=== PATIENT | male | born 1955 | race Caucasian/White ===

== ENCOUNTER 2021-11-06 09:46 | Outpatient (CLI) | payer BC, SELFPAY ==
--- NOTE | 2021-11-06 09:30 | DI.RAD_ITS ---
Exam(s) XR HIP LT COMPLETE AP PELVIS EXAM: XR HIP LT COMPLETE AP PELVIS INDICATION: eval L hip DJD. COMPARISON: CR RT HIP COMPLETE AP PELVIS from 04/26/2017 TECHNIQUE: 2D digital imaging was performed. Two views. FINDINGS: Has been no change in the right hip prosthesis or appearance of the surrounding bone. There is been interval worsening of degenerative changes of the left hip, now severe. There is severe superior hi p joint space narrowing, periarticular spurring and sclerosis as well as large subchondral cysts at both sides of the joint. There is slight flattening of the superior left femoral head. IMPRESSION: Severe degenerative changes of the left hip. DATA REPOSITORY: RADIATION DOSE DELIVERED:
== END 2021-11-06 09:47 | disposition home or self-care (01) ==
LOC: DIORS 09:46
PROVIDERS: PCP Physician Assistant Medical; Referring Provider Physician Assistant Medical; Visit Provider Student in an Organized Health Care Education/Training Program
DX: M25.552 Pain in left hip (principal); M16.12 Unilateral primary osteoarthritis, left hip; Z96.641 Presence of right artificial hip joint
CPT/HCPCS: 73502

== ENCOUNTER 2021-12-05 02:54 | Outpatient (CLI) | payer BC, SELFPAY ==
[2021-12-05 08:49] LABS: HCT 39.7 % (40.0-50.0); HGB 13.7 g/dL (13.5-17.5); MCH 32.2 pg (27.0-33.0); MCHC 34.5 % (32.0-36.0); MCV 93 fL (80-95); MPV 8.8 fL (8.0-11.0); Platelet Count 288 10^3/uL (130-400); RBC 4.25 10^6/uL (4.36-5.78); RDW 11.8 % (11.8-14.1); RDW-SD 40.7 fL; WBC 7.57 10^3/uL (4.4-10.8)
[2021-12-05 09:58] LABS: Anion Gap 10.3 mmol/L (3-11); BUN 10 mg/dL (7-18); CO2 24.7 mmol/L (21.0-32.0); CREATININE 0.8 mg/dL (0.70-1.30); Chloride 99 mmol/L (98-107); Glucose 134 mg/dL (74-106); Potassium 4.6 mmol/L (3.5-5.1); Sodium 134 mmol/L (136-145)
[2021-12-05 12:15] LABS: Source Nasal/Nares
[2021-12-05 14:37] LABS: COVID-19 PCR Negative (Negative)
== END 2021-12-05 02:55 | disposition home or self-care (01) ==
LOC: LBO 02:54
PROVIDERS: PCP Physician Assistant Medical; Visit Provider Student in an Organized Health Care Education/Training Program
DX: M25.552 Pain in left hip (principal); M16.12 Unilateral primary osteoarthritis, left hip; Z20.822 Contact with and (suspected) exposure to COVID-19; Z01.818 Encounter for other preprocedural examination; Z01.812 Encounter for preprocedural laboratory examination
CPT/HCPCS: 36415; 80048; 85027; 87635

== ENCOUNTER 2021-12-06 05:59 | Day surgery (SDC) | payer BC, SELFPAY ==
[2021-12-06] VITALS (9 sets, daily range): BP systolic 104–147; BP diastolic 64–96; PULSE 71–89; RESP 15–20; TEMP 36–37.1; O2SAT 95–99; BMI 26.8
[2021-12-06] MEDS: Celecoxib 200 MG CAP 400 MG PO (06:40)
[2021-12-06] MEDS: Acetaminophen 500 MG TAB 1000 MG PO (06:40)
[2021-12-06] MEDS: Lactated Ringers 1,000 ML 80 ML IV (07:00)
--- NOTE | 2021-12-06 07:18 | W.ANESPRE ---
General Info Date of Service Date Performed: 12/06/21 Height: 6 ft 1 in Weight: 92.1 kg Body Mass Index (BMI): 26.8 Surgical Procedure: Operation Date: 12/06/21 07:50 Proposed Procedure Side Surgeon p Hip Total Hip Anterior Left Laith Us MD Meds Allergies and Home Medications Allergies Allergy/AdvReac Type Severity Reaction Status Date / Time No Known Allergies Allergy Unverified 12/06/21 06:14 Home Medication Medication Instructions Recorded ranitidine HCl 150 mg tablet 150 mg PO DAILY 04/11/17 (Zantac) acetaminophen 500 mg tablet 1,000 mg PO TID PRN PRN ##90 04/12/17 (Masophen) losartan 50 mg tablet 50 mg PO DAILY 11/06/21 albuterol sulfate 90 mcg/actuation 2 puff inhalation Q4H PRN 12/01/21 aerosol inhaler Current Visit Medications: Current Medications Generic Name Dose Route Start Last Admin Trade Name Freq PRN Reason Stop Dose Admin Acetaminophen 1,000 mg 12/06/21 06:00 12/06/21 06:40 Acetaminophen 500 Mg Tab PO 12/06/21 18:00 1,000 mg PREOP LENORA Administration Celecoxib 400 mg 12/06/21 06:00 12/06/21 06:40 Celecoxib 200 Mg Cap PO 12/06/21 18:00 400 mg PREOP LENORA Administration Tranexamic Acid 1,000 mg/ 60 mls @ 360 mls/hr 12/06/21 06:00 Sodium Chloride IV 12/06/21 18:00 PREOP LENORA Ringer's Solution 1,000 mls @ 80 mls/hr 12/06/21 06:00 IV 01/04/22 23:59 INFUSION LENORA Cefazolin Sodium/Dextrose 2 gm in 50 mls @ 100 mls/hr 12/06/21 06:00 Ancef Duplex IVPB 12/06/21 16:00 PREOP LENORA IV Miscellaneous Supplies 1 each 12/06/21 06:00 Iv Access IV 01/04/22 23:59 DIRECTED LENORA Sodium Chloride 0 ml 12/06/21 06:00 Normal Saline Flush 10 Ml Syr IV 01/04/22 23:59 PRN PRN Sodium Chloride 0 ml 12/06/21 06:00 Normal Saline 10 Ml Vial IJ 01/04/22 23:59 DIRECTED PRN Sterile Water 0 ml 12/06/21 06:00 Water,Injection,Sterile 10 Ml Vial IJ 01/04/22 23:59 DIRECTED PRN PFSH Active Problems Active Problems: Problem Status Onset Code Osteoarthritis of left hip M16.12 Medical History Medical History COPD (chronic obstructive pulmonary disease) Hypertension Medical History Comments:: pt. states last hip, about 5 years ago, it took him a long time to come out of anesthesia Surgical History Surgical History (Updated 12/06/21 @ 06:17 by Clarissa Rashid) History of laparotomy (1973) kidney laceration following football History of prostate biopsy Hx of colonoscopy Status post right hip replacement Tobacco Smoking/Tobacco Use Status: Current every day Tobacco Type: cigarettes Alcohol Alcohol Intake: current Alcohol intake frequency: 0-2 drinks per day Alcohol type: hard liquor Substance Use Substance use: Never Substance use type: does not use Details: alcohol: t-1, three drinks Vital Signs and Lab Results Vital Signs Most Recent Vital Signs in EMR: Most Recent Vital Signs Temp Pulse Resp BP Pulse Ox 37.1 C 88 20 141/96 H 98 12/06/21 06:25 12/06/21 06:25 12/06/21 06:25 12/06/21 06:25 12/06/21 06:25 Lab Results Blood Type / Crossmatch: No Data to Display Complete Blood Count: White Blood Count 7.57 10^3/uL (4.4-10.8) 12/05/21 08:39 Red Blood Count 4.25 10^6/uL (4.36-5.78) L 12/05/21 08:39 Hemoglobin 13.7 g/dL (13.5-17.5) 12/05/21 08:39 Hematocrit 39.7 % (40.0-50.0) L 12/05/21 08:39 Platelet Count 288 10^3/uL (130-400) 12/05/21 08:39 Complete Metabolic Panel: Sodium Level 134 mmol/L (136-145) L 12/05/21 08:39 Potassium Level 4.6 mmol/L (3.5-5.1) 12/05/21 08:39 Chloride Level 99 mmol/L (98-107) 12/05/21 08:39 Carbon Dioxide Level 24.7 mmol/L (21.0-32.0) 12/05/21 08:39 Blood Urea Nitrogen 10 mg/dL (7-18) 12/05/21 08:39 Creatinine 0.8 mg/dL (0.70-1.30) 12/05/21 08:39 Estimated GFR/1.73 m2 >= 60.00 (mL/min/1.73m2) 12/05/21 08:39 Calcium Level 9.0 mg/dL (8.5-10.1) 12/05/21 08:39 Glucose Level 134 mg/dL (74-106) H 12/05/21 08:39 Liver Function Panel: No Data to Display Coagulation Panel: No Data to Display Cardiac Panel: No Data to Display Arterial Blood Gas: No Data to Display Venous Blood Gas: No Data to Display Pancreas Panel: No Data to Display Thyroid Panel: No Data to Display Infectious Disease: Coronavirus (COVID-19)(PCR) Negative (Negative) 12/05/21 09:10 Coronavirus 2019 Source Nasal/Nares 12/05/21 09:10 Blood Cultures: No Data to Display Toxicology Panel: No Data to Display Anesthesia Assessment and Plan Anesthesia History Personal History: No History of Anesthesia Complications Family History: No Family History of Anesthesia Complications Exercise Tolerance Exercise Tolerance: Metabolic Equivalents>4 Pertinent Negatives Pertinent Negatives: No Symptoms of GERD, No Major Pulmonary Symptoms or Complaints (SMOKER 2PPD Currently, COPD) and No History of CVA/TIA Cardiac & Pulmonary Exam Cardiac Exam: Normal S1/S2 Heart Sounds Pulmonary Exam: Clear Bilateral Breath Sounds Implantable Cardiac Device Does patient have a Pacemaker or an ICD?: No Airway Exam Known Difficult Airway: No Mallampati Class: 2 Mouth Opening: Normal (> 3cm) Thyromental Distance: Greater than 3 cm Neck Range of Motion: Full ROM Neck Circumference: Normal Teeth Condition: Normal Dentition and Removable Dentures/Plates Upper ASA Classification ASA Score: ASA 2 Emergency Case?: No NPO Status NPO Status: NPO Clears >2 hours, Solids >8 hours Anesthesia Plan Resuscitation Status: Full Code Anesthesia Technique: Spinal Anesthesia Airway Planned: Natural Airway Monitors Used: Standard Monitors
[2021-12-06] MEDS: ceFAZolin 2 GM/50 ML BAG IVPB (07:40)
--- NOTE | 2021-12-06 08:41 | DI.RAD_ITS ---
Exam(s) XR HIP LT IN OR EXAM: XR HIP LT IN OR CLINICAL HISTORY: arthroplasty TECHNIQUE: 2D and realtime digital imaging was performed. COMPARISON: No exams were available for comparison FINDINGS: C-arm fluoroscopy was utilized by Dr. Us during placement of left hip prosthesis, hard copies s how femoral and acetabular components in good position. IMPRESSION: RADIATION DOSE DELIVERED: jose l Villela=3.55 mGy
--- NOTE | 2021-12-06 08:52 | ROE_ITS ---
Date of service: 12/06/21 Time of Service: 07:52 Operative Note Operative Note DATE OF PROCEDURE: 12/06/21 PRE-OP DIAGNOSIS: Left Hip Osteoarthritis POST-OP DIAGNOSIS: same PROCEDURE: Left Anterior Total Hip Arthroplasty with Intraoperative Navigation SURGEON: Laith Us ANESTHESIA TYPE: Spinal Refer to Anesthesia Record ESTIMATED BLOOD LOSS: 100 PATHOLOGY: none sent TOURNIQUET TIME: 0 COMPLICATIONS: None Patient was transported to: PACU Patient's condition: stable Implants: 1. Depuy [place] Acetabular Component, 56mm 2. Depuy Acetabular Liner, [id number] 3. Depuy Corail Standard Collared Femoral Stem, Size 14 4. Depuy Altrx Ceramic Femoral Head, Size 36+8.5mm Indications: I have seen Silvestre in clinic for symptoms of hip arthritis, confirmed with radiographic findings. He has exhausted nonoperative methods and was having significant limitations in daily function and desired better function and less pain. I discussed the technical details of a hip replacement. I explained the risks of the procedure to include, but not limited to, bleeding, infection, pain, stiffness, fracture, damage to nerves and vessels, damage to muscles and tendons, loosening, instability, leg length inequality, need for repeat procedure, blood clot and cardiopulmonary demise. Despite these risks, Silvestre elected to proceed. Findings: There was significant signs of arthritis throughout the hip. Large osteophytes were present around the femoral head with complete loss of cartilage from the superior femoral head. Procedure Description: Silvestre was greeted in the preoperative holding area where the correct side was identified and marked. The consent was reviewed with the patient and signed. The history and physical was updated. All questions were answered. He was taken back to the operating room. A spinal anesthestic was then administered. The feet were wrapped with cast padding and Coban and then placed into the boot liners and then into the boots. Care was taken to protect the skin and make sure the heels were fully down and the boots were stable. The patient was then positioned onto the HANA table. Both legs were held in a neutral position. SCDs were applied. The patient was then slid down onto a peroneal post. Prophylactic antibiotics in the form of Cefazolin were administered. 1g of Tranxemic Acid was given intravenously within 30 minutes of incision. The left leg was then prepped with Chloraprep and draped in a standard fashion. A second prep with Chloraprep was performed prior to placement of a shower-curtain type drape with Iodine impregnated skin protection. A timeout to confirm correct identity, side and site, procedure, allergies, anesthesia, and medical concerns was performed. An obliquely oriented incision was made starting lateral to the ASIS and running distal over the Tensor Fascia Lesvia (TFL) muscle belly toward the fibular head, approximately 10cm. The skin and soft tissue was dissected sharply, through Sca rpa?s fascia, and to the fascia of the TFL. With the fascia and superior border of the IT band identified, the fascia was incised with a new knife just above any perforators from the IT band. The TFL muscle belly was bluntly dissected away from the fascia and moved laterally. The fat between TFL and rectus was identified to ensure the dissection was not within the TFL. Blunt dissection created space between abductors and the capsule and retractor was placed over the lateral femoral neck. The fibers of the rectus femoris tendon were identified and these were freed from the anterior capsule. A second cobra retractor was placed around the medial femoral neck. The TFL was further retracted laterally to show the deep fascia. Careful dissection through this layer identified three main crossing vessels of the lateral femoral circumflex. These were cauterized in multiple locations and then cut without any noticeable bleeding. The TFL was further released bluntly from the deep fascia to expose anterior hip capsule and fat The Jaime orthopaedic retractor was then placed beneath the TFL and against sartorius and medial soft tissues to protect and retract the soft tissues. A T-capsulotomy was then performed starting at the superior lateral acetabulum and moving distally to the intertrochanteric ridge. These capsular flaps were tagged with a No. 1 Ethibond and elevated from within. The capsular flaps were released to the shoulder of the lateral neck and to the lesser trochanter to give excellent visualization of the proximal femur. A neck osteotomy was performed using an oscillating saw based on preoperative templates. This cut started in the shoulder and of the lateral neck and exited medially. The saw was at all times directed medially to avoid injury to the gr eater trochanter. Gross traction was applied to the leg and the osteotomy opened. The femoral head was removed with a corkscrew, making sure to protect the TFL on its exit. Traction was released after head removal. This was measured on the back table to determine the starting reamer size. Portions of the rectus obscuring visualization were minimally elevated off the superior acetabulum. An anterior retractor was placed over the anterior wall between capsule and labrum and attached to the Gripper retraction system. The femur was rotated to 90 degrees and medial capsule was fully released until the lesser trochanter was palpable and visible; the femur was returned to 30 degrees. A posterior retractor was placed similarly between capsule and labrum. This provided excellent visualization. The contents of the cotyloid fossa were removed with electrocautery and the labrum was removed with a knife. There was a notable floor osteophyte. There was significant chondromalacia of the s uperior acetabulum. Acetabular reaming began with a 52mm reamer. This first reaming was directed anterior to posterior and medial to get down to the true floor. This was inspected and reamed until the true floor was reached. The anterior retractor was then released and entry and exit was provided by traction on the capsular flaps. I then reamed sequentially up to a 56mm reamer where good fit was obtained. The larger reamers were oriented based on anatomical reference of the anterior and lateral bustos to ensure proper abduction and anteversion. Positioning and size was confirmed with the fluoroscopy. A 56mm Depuy [place] acetabular component was selected. The deep tissues were irrigated. The acetabular component was then impacted in a position of about 40-45 degrees of abduction and 15-20 degrees of anteversion, using the patient?s anatomy as the ultimate landmark. Fluoroscopy was used to confirm this. There was excellent hooker off of the acetabular component and the inserting handle was removed. The acetabular liner, Depuy [id number] polyethylene liner, was inserted and lined up with the tines of the acetabular component. There was no soft tissue interposition. The liner was then impacted into position and confirmed to be well-seated. A portion of the henry-articular cocktail was then injected around the acetabulum into the capsule and periosteum. This cocktail consisted of 123mg of Ropivacaine, 0.25mg of Epinephrine, 0.04mg of Clonidine, and 15mg of Ketorolac, diluted to 50cc. The leg was rotated to 120 degrees. Any remaining medial capsule was released until the lesser trochanter was easily palpable. A retractor was placed medially. The lateral capsule was further released into the shoulder to allow access to the greater trochanter. A Sol retractor was placed over the greater trochanter which allowed the trochanter to flip in front of the capsule for excellent exposure. The leg was brought down into maximal extension and 20 degrees of adduction while ensuring there was no impingement on the acetabulum. Any remnant capsule within the trochanter was released. Piriformis and obturator externis were identified and protected. There was excellent access to the proximal femur. The lateral neck remnant was removed with a rongeur. A blunt canal probe was used to identify the canal and trajectory for later broaching. A box osteotome initiated the broach course. A small curved rasp and a curved curette were used to work laterally. Broaching then began with a size 8 [place] broach. This was inserted manually around the trochanter and into the canal before mallet blows. The broach was seated to a few millimeters below the cut level based on the neck cut and the preoperative template. Sequential broaching was continued with the Factyle pneumatic broaching device until a tight fit was obtained with good rotational control of the femur. A trial standard neck was inserted along with a +5 trial head. The leg was brought out of extension and adduction and then reduced with traction and internal rotation. The leg was stable anteriorly in a position of 30 degrees of extension and 90 degrees of external rotation. Fluoroscopy was used to ensure there was no fracture and the stem was seated well. Leg lengths were checked with an AP pelvis and pelvic reference points. PT PAL navigation system was used to confirm appropriate positioning and leg length and offset. The goal was to recreate the femoral offset and add 2-3mm of leg length. To accomplish this I went to a +8.5mm head and advanced the broach 1- 2mm. Once content with the desired offset and leg lengths, the leg was brought back into extension, external rotation and adduction. The periosteum and surrounding tissue was injected with remaining portion of the henry-articular cocktail. The proximal femur was irrigated as well as the deep tissues. The Depuy [place] standard collared stem, size 14, was then manually inserted into the proximal femur making sure to control rotation. It was then malleted into position with light blows, giving breaks to allow bone expansion and decrease risk of fracture. The selected Depuy Altrx Ceramic Head, size 36+8.5mm, was then placed onto the clean and dry trunnion and secured with impaction onto the tapered fit. The leg was brought back out of extension and adduction and reduced with traction and internal rotation. Stability was confirmed with no shuck at 90 degrees of external rotation and 30 degrees of extension. No impingement through range of motion arc. Final x-ray images were obtained with fluoroscopy to confirm adequate positioning and no intraoperative fracture. The deep tissues were thoroughly irrigated with Surgiphor, betadine solution. This was allowed to sit in the wound for 3 minutes before being thoroughly irrigated out with normal saline. The capsule was then reapproximated with the previously placed Ethibond sutures. The TFL fascia was finally closed with a No. 2 Stratafix, barbed suture. Deep tissues were then reapproximated with 0 Vicryl and a running 2-0 Vicryl. The skin was closed with a running 4-0 Monocryl in a subcuticular fashion. This was reinforced with skin glue. A Mepilex silver dressing was applied. At the end of the case, all counts were correct. Silvestre was transferred to the hospital bed without difficulty and suffering no apparent complication. He has a good prognosis. Physical therapy will start today and without restrictions, weight-bearing as tolerated. Aspirin 81mg BID will be used for DVT prophylaxis.
--- NOTE | 2021-12-06 08:56 | PDOC.DSDIS_ITS ---
Discharge Plan Disposition Patient Disposition: HOME Condition: Good Discharge Details Reason For Visit: Left hip arthritis Attending Provider: Laith Us Primary Care Provider: Suresh Burgos Home Meds and New Rx's Prescriptions: New aspirin 81 mg tablet,delayed release (DR/EC) 81 mg PO BID Qty: 60 0RF pantoprazole 40 mg tablet,delayed release (DR/EC) 40 mg PO DAILY Qty: 30 0RF ibuprofen 600 mg tablet 600 mg PO TID PRN (Reason: pain) Qty: 90 3RF oxycodone 5 mg tablet 5 mg PO Q4H Qty: 18 0RF Continued losartan 50 mg tablet 50 mg PO DAILY ranitidine HCl [Zantac] 150 MG tablet 150 mg PO DAILY albuterol sulfate 90 mcg/actuation Hfa Aerosol Inhaler 2 puff INHALATION Q4H PRN acetaminophen [Masophen] 500 MG tablet 1,000 mg PO TID PRN PRNQty: 90 0RF Discharge Instructions Additional Instructions: Total Hip Discharge Instructions Activity: The most important activity is to walk. You should try to take short walks a few times a day. You have no restrictions on movement or positioning, but do not try to force what you do. You will find some stiffness and weakness with hip flexion (lifting your knee). Do not try to strengthen this too early, continue to practice walking and stairs and this will come. - Outpatient physical therapy can be helpful to help return you to a normal gait and improve your flexibility and strength. This can start around 2 weeks. For some patients, it?s not necessary. Usually this is determined at the time of discharge or at the first post-operative visit. - You should wear the JOSE DANIEL hose on both legs for 2 weeks. Dressing: Keep the surgical dressing in place for at least one week. After the first week it may be removed and replace with light gauze and tape or nothing. It may get wet after 3 days but avoid soaking the dressing. If it gets wet, just lightly pat dry. It is important to always keep some gauze between skin folds, especially when you are sitting. Spend some time with the wound exposed when you are lying flat as the incision does wrinkle onto itself. Medications: - You should take Tylenol and an anti-inflammatory Ibuprofen as your primary pain control medications. - You have been prescribed a stronger pain medication Oxycodone for breakthrough pain, take as needed as prescribed. - You have also been prescribed a stomach acid reduction agent Pantoprozole to help reduce stomach acid and reflux. - You will be taking Aspirin 81mg twice a day for DVT prevention unless instructed otherwise. - If you have constipation you should take Colace or Miralax (both [id number]). It takes most people 3-4 days to have a bowel movement. Follow-up: 2 weeks If you have any acute concerns or questions, please do not hesitate to contact the office at [phone]. You may contact Dr. Us with any questions after hours through the hospital at [phone] or on his cell phone at [phone]. Referrals: Laith Us MD [ [facility] STAFF PHYSICIAN] - Activity:: Activity as Tolerated Remove Dressings/Wound Care:: Do Not Remove Shower/Bathe:: 72 hours Diet:: As Tolerated Discharge Orders Discharge Orders: Discharge Order (Routine); Ordered 12/06/21 Ordered By: Laith Us
--- NOTE | 2021-12-06 10:38 | W.ANESPOSTOP ---
Postoperative Evaluation Date, Time and Location Date Performed: 12/06/21 Time Performed: 10:38 Patient Location: Day Surgery Unit Vital Signs Most Recent Imported Vital Signs: Most Recent Vital Signs Temp Pulse Resp BP Pulse Ox 36.0 C L 82 20 133/83 96 12/06/21 10:15 12/06/21 10:15 12/06/21 10:15 12/06/21 10:15 12/06/21 10:15 Pain Score Most Recent Pain Score: Most Recent Pain Score Pain Level 0 12/06/21 10:15 Assessment Mental Status: Awake (Alert & Oriented to Patient Baseline) Airway and Respiratory Function: Patent airway with normal (patient baseline) respiratory exam Cardiovascular Function: Hemodynamically Stable Hydration Status: Adequately Hydrated Nausea & Vomiting: No Nausea or Vomiting Pain: Pt. Denies Any Pain Peripheral Nerve Block: Patient did not receive a nerve block Teaching Patient Teaching: Discussed Safe Use of Pain Medication Given Likely or Known SAVANAH
--- NOTE | 2021-12-06 10:40 | PT.INIE ---
Date of service: 12/06/21 Time of Service: 10:40 PT Notes Visit Reasons: Left hip arthritis Physical Therapy Day Surgery Initial Evaluation Date: 12/06/2021 Referring Doctor: VANGIE Burroughs PT Orders: PT CONSULT: Eval/treat Precautions: WBAT on the L LE with AD. Patient Profile/Admitting Diagnosis: Patient is a 66-year-old male patient with L hip osteoarthritis and is S/P L hip anterior total hip arthroplasty on postoperative day 0. PMHX: Medical History?(Updated 11/22/21 @ 15:52 by Megan Camargo) Hypertension Surgical History?(Updated 11/23/21 @ 13:18 by Megan Camargo) History of laparotomy (1973) kidney laceration following football History of prostate biopsy Status post right hip replacement Social History/Home Situation: Patient lives with in a private home with 3 steps to enter without rails. Works for an [employer]. Independent with all aspects of ADLs prior to surgery. She has stairs to the second floor of the house with rails on B sides. Equipment Owned/DME: FWW Subjective: Agreeable to PT consult. No pain on the L hip at rest, 2/10 with weight bearing. Objective: General Observation: Supine in bed. Mepilex Ag over surgical incision Mental Status: Alert and oriented x 4 Pain: No pain on the L hip at rest, 2/10 with weight bearing ROM: Right Lower Extremity: Hip flexion WFL. Hip abduction WFL. Knee flexion WFL. Ankle dorsiflexion WFL. Ankle plantarflexion WFL. Left Lower Extremity: Hip flexion WFL. Hip abduction WFL. Knee flexion WFL. Ankle dorsiflexion WFL. Ankle plantarflexion WFL. Strength: Right Lower Extremity: Hip flexors 5/5. Hip abductors 5/5. Knee flexors 5/5. Knee extensors 5/5. Ankle dorsiflexors 5/5. Ankle plantarflexors 5/5. Left Lower Extremity:Hip flexors 4/5. Hip abductors 4/5. Knee flexors 5/5. Knee extensors 5/5. Ankle dorsiflexors 5/5. Ankle plantarflexors 5/5. Sensation: Reports minimal tingling in B feet that started to subside with ambulation Bed Mobility/Transfers: Supine to sit independent Sit to stand independent Stand to sit stand by assist Bed to chair stand by assist Gait: Level surface ambulation using FWW of about 100 feet with step-through gait pattern with no report of pain. Moderate cues given for correct gait pattern and overall safety. Increased internal tibial rotation after push off and into swing but patient's statse that this is his baseline gait pattern anyway. Nurse Kimberly provided wheelchair follow for safety. Stairs: Up and down 6 x 4-inch steps and 4 x 6-inch steps while holding onto rail with one hand and a SPC with mara other hand with step-to gait pattern. THERA EX: Instructed patient with seated hip flexion x 5, LAQs x 5, Supine hip abduction/addcution x 5, gluteal sets x 5, quadrriceps sets x 5, ankle Df/PF x 10 with no increase in pain. Balance: Static Sitting: Normal Dynamic Sitting: Normal Static Standing: Fair Dynamic Standing: Fair Special Tests: Mobility Limitations Standardized Measure [facility] AM-PAC 6 clicks Basic Mobility Inpatient Short Form: Raw Score: 23 CMS Score: 11% deficit Informed Consent/Education: Patient instructed in purpose of PT consult. Education and training on initial set of exercises that can be done at home have been completed with patient and . Assessment: Patient requires the use of FWW to maximize independence and reduce fall risk at home. Patient presents with clinical signs and symptoms consistent with current/admitting diagnoses that have resulted to mobility limitations, gait instability, generalized weakness, and impairment of motor control as demonstrated by the following impairment level findings: 1. Decreased strength to left hip major muscle groups 2. Impaired standing balance 3. Pain in R thigh that subsided with rest Impairments are contributing to the following functional limitations: 1. Inability to safely ambulate without assistive device 2. Increase completion time for mobility ADL performance 3. Increased fall risk Patient is assessed as a complexity based on the following: History: 66-year-old male with impairment level findings, functional limitations, and past medical history as indicated above Examination: Demonstrable impairment in strength, balance, and mobility level with underlying impairments and functional limitations as documented above Presentation: Evolving Decision Makin moderate complexity Goals: N/A. PT evaluation and 1-2 treatment sessions only for functional mobility training using recommended AD and for HEP instruction. Plan of Care/Treatment Plan: N/A. PT evaluation and 1-2 treatment session only for functional mobility training using recommended AD and for HEP instruction. DISCHARGE RECOMMENDATIONS: Home when medically cleared by orthopedic surgeon. Patient will benefit from outpatient PT services in order to facilitate return to independent ADL performance and community ambulation witthout an assitive device. TREATMENT CODE/TIME: 20724 x 20 minutes, 74936 x 20 minutes beginning at 10:40 AM. Thank you for the opportunity to participate in the care of this patient. Sarah Coello PT, DPT, CLT [facility] [place], [place]
== END 2021-12-06 12:36 | disposition home or self-care (01) ==
PROVIDERS: PCP Physician Assistant Medical; Visit Provider Student in an Organized Health Care Education/Training Program
PROC: (CPT 27130; principal; 2021-12-06 07:30)
DX: M16.12 Unilateral primary osteoarthritis, left hip (principal); I10 Essential (primary) hypertension
CPT/HCPCS: 27130; 20985; 97162; 97530; 73501; J0690; J2250

== ENCOUNTER 2021-12-21 09:46 | Outpatient (CLI) | payer BC, SELFPAY ==
--- NOTE | 2021-12-21 09:30 | DI.RAD_ITS ---
Exam(s) XR HIP LT COMPLETE AP PELVIS EXAM: XR HIP LT COMPLETE AP PELVIS CLINICAL HISTORY: 1st post op L VINCE. TECHNIQUE: 2D digital imaging was performed. COMPARISON: CR XR HIP LT COMPLETE AP PELVIS from 11/06/2021 FINDINGS: Two views Satisfactory appearance components of the recently placed left hip prosthesis. No fractures evident. No obvious loosening. IMPRESSION: DATA REPOSITORY: RADIATION DOSE DELIVERED:
== END 2021-12-21 09:47 | disposition home or self-care (01) ==
LOC: DIORS 09:47
PROVIDERS: PCP Physician Assistant Medical; Referring Provider Physician Assistant Medical; Visit Provider Student in an Organized Health Care Education/Training Program
DX: Z96.642 Presence of left artificial hip joint (principal)
CPT/HCPCS: 73502

== ENCOUNTER 2023-01-28 11:11 | Outpatient (CLI) | payer BC, SELFPAY ==
--- NOTE | 2023-01-28 10:00 | DI.RAD_ITS ---
Exam(s) XR HIP LT AP LAT ONLY EXAM: XR HIP LT AP LAT ONLY CLINICAL HISTORY: YEARLY F/U L VINCE. TECHNIQUE: 2D digital imaging was performed. Two images were obtained. AP and lateral views were ob tained. COMPARISON: CR XR HIP LT COMPLETE AP PELVIS from 12/21/2021 FINDINGS: BONES: There are stable post operative changes present. No fracture or dislocation. JOINTS: The orthopedic hardware is in good position. No evidence of hardware loosening. SOFT TISSUE: Normal. IMPRESSION: Stable postoperative changes. DATA REPOSITORY: RADIATION DOSE DELIVERED:
== END 2023-01-28 11:12 | disposition home or self-care (01) ==
LOC: DIORS 11:13
PROVIDERS: PCP Physician Assistant Medical; Referring Provider Physician Assistant Medical; Visit Provider Student in an Organized Health Care Education/Training Program
DX: Z96.642 Presence of left artificial hip joint (principal); Z47.1 Aftercare following joint replacement surgery
CPT/HCPCS: 73502